=== PATIENT | female | born 1965 | race Caucasian/White ===

== ENCOUNTER 2019-05-26 12:04 | Observation (INO) | payer BC, MEDICARE ==
[2019-05-26] MEDS ORDERED: Fentanyl 100 MCG/2 ML VIAL ONE (12:17)
[2019-05-26] MEDS ORDERED: Potassium Chloride 20 MEQ TAB ONE (12:44)
[2019-05-26 12:53] LABS: PTT 27.5 SEC (22.9-36.1); Prothrombin Time 13.4 SEC (12.0-14.7)
[2019-05-26] MEDS ORDERED: Acetaminophen 325 MG TAB PO PRN (15:51)
[2019-05-26] MEDS ORDERED: Ondansetron PF 4 MG/2 ML Vial IVP PRN ×2 (15:51→16:03)
[2019-05-26] MEDS ORDERED: Morphine 4 MG/ML VIAL SLOW IVP PRN (15:51)
[2019-05-26] MEDS ORDERED: Ondansetron ODT 4 MG TAB SL PRN (15:51)
[2019-05-26] MEDS ORDERED: diphenhydrAMINE 50 MG/ML VIAL IVP SCH (16:03)
[2019-05-26] MEDS: NS 0.9% w/ 20 MEQ KCL 1,000 ML/1,000 ML BAG IV SCH (17:44)
--- NOTE | 2019-05-26 17:57 | HP ---
CHIEF COMPLAINT: Left index finger snakebite. HISTORY OF PRESENT ILLNESS: The patient is a 54-year-old female, who was bitten by a snake today this morning when she was trying to clean some brass, and she immediately went to the emergency room in [place], and she was treated with CroFab four vials and morphine and IV fluids, and she was transferred to the high level of care at [facility] in [place]. She is getting admitted for further observation. She did not have any other symptoms than just pain and swelling of the left hand. She did not have any nausea, vomiting, abdominal pain, or blood pressure problem. She did not have any paresthesias. No fever. No chills. PAST MEDICAL HISTORY: 1. Deisy-Danlos syndrome. 2. Thyroid goiter. 3. Adrenal fatigue syndrome. 4. Osteoarthritis. 5. Osteoporosis. 6. Some colon polyps with high-grade dysplasia and she is on the current surveillance. PAST SURGICAL HISTORY: 1. Cervical spine surgery x2. 2. Ulnar transposition surgery. 3. Right shoulder arthroplasty and replacement. 4. x2. 5. Tubal ligation. 6. Breast augmentation. 7. Abdominoplasty. SOCIAL HISTORY: She denies any alcohol, use of cigarette smoking, or illicit drug use. MEDICATIONS: Please refer to her medication list, but as far as I know, we do not have this list yet. ALLERGIES: NONE. REVIEW OF SYSTEMS: All systems were reviewed and they were negative except for mentioned in HPI. PHYSICAL EXAMINATION: VITAL SIGNS: Blood pressure is 130/86, pulse is 64, respiratory rate is 18, temperature is 97.7, O2 saturation is 99% on room air. HEENT: Her head is atraumatic and normocephalic. Eyes are PERRLA. Sclerae are nonicteric. Oral mucosa is moist. NECK: Supple. I do not feel any goiter. HEART: S1 and S2 normal. No S3. No S4. No any murmur. ABDOMEN: Soft, nontender, nondistended. Bowel sounds are present. No organomegaly. EXTREMITIES: Left hand up to the left elbow shows some swelling and tenderness to touch with mild erythema and there is an evidence of bite from the snake on the index finger. NEUROLOGICAL: She is alert and oriented x4. There are no any motor or sensory deficits present. Cranial nerves intact except for decreased sensation over the left hand and left forearm secondary to swelling. LABORATORY DATA: Sodium of 141, potassium 3.1, chloride 105, CO2 of 26, BUN 15, creatinine 0.94, glucose 120. The rest of chemistry is within normal limits. CPK is 104. Fibrinogen is 333. PT of 12.6 and INR of 0.9. CBC is normal. EKG is not done. IMPRESSION: Snakebite and assessed as moderate intensity into the left hand with a copperhead status post 4 ampoules of CroFab per antivenin treatment guidelines. This was done over 60 minutes in [place] today. The time of bite was 09:13 this morning to the left index finger. She received 1 L of IV fluids in [place]. We will give her additional 100 mL/hour of normal saline. We will continue p.r.n. opioids orally for the pain management and antiemetics p.r.n. as needed. We will do deep venous thrombosis prophylaxis with sequential compression devices, and we will review her home medications when the list is available. Job ID: [id number]
[2019-05-26 18:00] LABS: #Basophils 0.1 thou/uL (0.0-0.2); #Eosinphils 0.2 thou/uL (0.0-0.7); #Lymphocytes 2.2 thou/uL (1.20-3.40); #Monocytes 0.6 thou/uL (0.11-0.59); %Basophils 0.7 % (0.0-1.0); %Eosinophils 2.2 % (0.0-10.0); %Lymphocytes 24.2 % (21.0-51.0); %Monocytes 6.1 % (0.0-10.0); %Neutrophils 66.9 % (42.0-75.0); Hemoglobin 12.6 g/dL (12.0-16.0); Mean Corpuscular Hemoglobin 29.6 pg (27.0-31.0); Mean Corpuscular Volume 89.5 fL (78.0-98.0); Mean Platelet Volume 7.2 fL (7.4-10.4); Platelet Count 227 thou/uL (130-400); RBC Distribution Width 12.2 % (11.5-14.5); Red Blood Cell (RBC) Count 4.26 mill/uL (4.20-5.40)
[2019-05-26 18:06] LABS: Fibrinogen 282 mg/dL (253-463)
[2019-05-26 18:07] LABS: Prothrombin Time 13.5 SEC (12.0-14.7)
[2019-05-26 18:20] LABS: FSP-Qualitative ABNORMAL (Normal); FSP-Semiquantitative >=40 & <80 mcg/mL (Less than 5)
[2019-05-26 18:21] LABS: ALT (SGPT) 19 U/L (8-55); AST (SGOT) 20 U/L (5-34); Albumin 3.6 g/dL (3.5-5.0); Alkaline Phosphatase 80 U/L (40-150); Anion Gap 8 mmol/L (10-20); BUN (Urea Nitrogen) 11 mg/dL (9.8-20.1); Bilirubin, Total 0.9 mg/dL (0.2-1.2); CK (CPK) 75 U/L (29-168); Calc. Creatinine Clearance 66 mL/min (70-130); Calcium 8.4 mg/dL (7.8-10.44); Carbon Dioxide 29 mmol/L (22-29); Chloride 107 mmol/L (98-107); Estimated GFR-MDRD 74; Globulin 2.2 g/dL (2.4-3.5); Glucose 133 mg/dL (70-105); Potassium 3.8 mmol/L (3.5-5.1); Protein, Total 5.8 g/dL (6.0-8.3); Sodium 140 mmol/L (136-145)
[2019-05-26] MEDS: HYDROcodone/Acetaminophen 5/325 mg Tablet PO PRN (20:31)
[2019-05-27] MEDS: NS 0.9% w/ 20 MEQ KCL 1,000 ML/1,000 ML BAG IV SCH ×3 (03:34→15:27)
[2019-05-27] MEDS: Levothyroxine Sodium 75 MCG TAB PO SCH (06:22)
[2019-05-27] MEDS: HYDROcodone/Acetaminophen 5/325 mg Tablet PO PRN (06:22)
[2019-05-27 12:58] LABS: #Eosinphils 0.2 thou/uL (0.0-0.7); #Lymphocytes 1.9 thou/uL (1.20-3.40); #Monocytes 0.6 thou/uL (0.11-0.59); #Neutrophils 3.9 thou/uL (1.40-6.50); %Basophils 0.7 % (0.0-1.0); %Eosinophils 3.5 % (0.0-10.0); %Lymphocytes 28.3 % (21.0-51.0); %Monocytes 8.5 % (0.0-10.0); %Neutrophils 59.1 % (42.0-75.0); Hemoglobin 11.8 g/dL (12.0-16.0); Mean Corpuscular HGB CONC 32.9 g/dL (32.0-36.0); Mean Corpuscular Hemoglobin 29.5 pg (27.0-31.0); Mean Corpuscular Volume 89.5 fL (78.0-98.0); Mean Platelet Volume 7.2 fL (7.4-10.4); Platelet Count 200 thou/uL (130-400); RBC Distribution Width 12.2 % (11.5-14.5); Red Blood Cell (RBC) Count 3.99 mill/uL (4.20-5.40); White Blood Cell (WBC) Count 6.7 thou/uL (4.8-10.8)
[2019-05-27 13:23] LABS: ALT (SGPT) 15 U/L (8-55); AST (SGOT) 16 U/L (5-34); Albumin 3.1 g/dL (3.5-5.0); Alkaline Phosphatase 88 U/L (40-150); Anion Gap 6 mmol/L (10-20); BUN (Urea Nitrogen) 9 mg/dL (9.8-20.1); Bilirubin, Total 0.4 mg/dL (0.2-1.2); Calc. Creatinine Clearance 73 mL/min (70-130); Calcium 8.3 mg/dL (7.8-10.44); Carbon Dioxide 29 mmol/L (22-29); Chloride 109 mmol/L (98-107); Estimated GFR-MDRD 83; Globulin 1.9 g/dL (2.4-3.5); Glucose 151 mg/dL (70-105); Potassium 3.9 mmol/L (3.5-5.1); Sodium 140 mmol/L (136-145)
[2019-05-27] MEDS ORDERED: Sodium Chloride 0.9% 250 ML IV SCH (14:15)
[2019-05-27 15:06] VITALS: BMI 17.2
[2019-05-27] MEDS ORDERED: Acetaminophen 325 MG TAB PO PRN (16:32)
--- NOTE | 2019-05-27 18:02 | PRG ---
DATE OF SERVICE: 05/27/2019 SUBJECTIVE: The patient is seen and examined at the bedside. She is feeling somewhat better and her pain and swelling in the left arm is significantly improved. OBJECTIVE: VITAL SIGNS: Blood pressure is 115/60, pulse is 63, temperature is 98.0, respiratory rate is 18, and O2 saturation 97% on room air. HEENT: Head is atraumatic and normocephalic. Eyes are PERRLA. Sclerae are nonicteric. Oral mucosa is moist. NECK: Supple. LUNGS: Clear. HEART: S1 and S2 normal. No S3. No S4. ABDOMEN: Soft, nontender, and nondistended. EXTREMITIES: No clubbing or cyanosis. There is swelling and tenderness to palpation over her left hand, where she was bitten by the snake, but the swelling is improved and the tenderness is significantly improved too. NEUROLOGIC: She is alert and oriented x4. There is no any motor or sensory deficits. LABORATORY DATA: White count of 6.7, hemoglobin 11.8, hematocrit 35.7, and platelet count is 200,000. Sodium of 140, potassium 3.9, chloride 109, CO2 of 29, BUN 9, creatinine 0.73, and glucose 151. Liver function tests within normal limits. Followup lab work yesterday at 1800 hours showed no any worsening in her coagulation panels. EKG was done and it showed prolonged QT interval. She is in normal sinus rhythm on her electrocardiogram. IMPRESSION: Left hand copperhead snake bite status post 4 ampules of CroFab given yesterday. The patient improved significantly. She had some low blood pressure earlier today. She was given IV fluids and her blood pressure is back to normal. Her mental condition is good. Her potassium was replaced and today is 3.9. I recommended her to contact her primary care physician regarding prolonged QT. She said that she is going to contact her family sociologist for now. We are not going to continue her SSRI, which is most likely causing that. We will continue just Adderall, which is not associated with prolongation of QT interval. She should be able to go home tomorrow. Job ID: [id number]
[2019-05-28] MEDS: NS 0.9% w/ 20 MEQ KCL 1,000 ML/1,000 ML BAG IV SCH (03:00)
[2019-05-28] MEDS: Levothyroxine Sodium 75 MCG TAB PO SCH (05:36)
[2019-05-28] MEDS ORDERED: Furosemide 20 MG/2 ML VIAL SLOW IVP SCH (10:00)
[2019-05-28] MEDS ORDERED: Polyethylene Glycol 3350 17 GM Packet PO SCH (10:45)
[2019-05-28 12:21] VITALS: BP 114/68; TEMP 98.3
[2019-05-28] MEDS: ADDERALL 20 MG PO SCH ×2 (13:42→13:43)
--- NOTE | 2019-05-29 01:59 | DIS ---
DATE OF ADMISSION: 05/26/2019 DATE OF DISCHARGE: 05/28/2019 DIAGNOSES AT THE TIME OF DISCHARGE: 1. Poisonous snake bite. 2. Hypothyroidism. 3. Deisy Danlos syndrome. 4. Adrenal fatigue syndrome. 5. Osteoarthritis. 6. Osteoporosis. 7. History of colon polyps with high-grade dysplasia. HOSPITAL COURSE: The patient is a 54-year-old female, who was bitten by a copperhead snake. Apparently, she was trying to clean some brush and she was spitten in her left index finger. She immediately went to emergency room in [place], where she was treated with CroFab with four vials. Also, she was given fluids and morphine and was transferred for higher level of care to [facility] in [place]. At the time of emergency room visit, her blood pressure was 130/86, pulse was 64, respiratory rate was 18, temperature 97.7, O2 saturation was 99% on room air. Her left hand was swollen and very tender. She was treated with morphine and IV fluids, and got admitted to the hospital for observation. Her sodium was 141, potassium 3.1, so she was treated with potassium supplementation. Chloride was 105, CO2 of 26, BUN 15, creatinine 0.94, glucose 120, CPK was 104, fibrinogen 333, PT of 12.6, and INR of 0.9. CBC was normal. EKG showed prolonged QT interval. The patient was in sinus rhythm. She got admitted to the hospital. Her SSRI was stopped as possible cause of prolonged QT interval. She was continued on her thyroid supplementation and other medications. She was given IV fluids. There was no any complications after the admission. Her mental function was fine and we did not see any worsening of her clotting system based on our lab work. She is doing well. Her swelling is significantly down, almost completely gone. She is discharged home. Blood pressure is 114/68, pulse is 76, temperature is 98.3, respirations 18, O2 saturation is 98% on room air. She was seen and examined before she was discharged. She was discharged on regular diet. Activities as tolerated. Disposition home. She is going to contact her care tech regarding QT interval prolongation found on her electrocardiogram and use of SSRIs, which can cause that problem. Also, she will follow up with primary care physician in 1 week. She is planned to go to [place] for that, that is where she is from. TIME SPENT: Time spent on this discharge is less than 30 minutes. Job ID: [id number]
--- NOTE | 2019-05-30 12:31 | EKG ---
Test Reason : ER Blood Pressure : / mmHG Vent. Rate : 061 BPM Atrial Rate : 061 BPM P-R Int : 156 ms QRS Dur : 088 ms QT Int : 460 ms P-R-T Axes : 060 063 057 degrees QTc Int : 463 ms Normal sinus rhythm Prolonged QT Abnormal ECG Confirmed by VALERIE PALMER DO ([id number]), editorial manager EMILIANA DELATORRE ([id number] on 05/30/2019 12:31:03 PM Referred By: Confirmed By:AVLERIE PALMER DO
== END 2019-05-28 13:17 | disposition home or self-care (01) ==
LOC: ERS 12:04 → INTOOBSV 12:27 → ONC 12:27
PROVIDERS: ADMIT Internal Medicine; ATTEND Internal Medicine
DX: T63.061A Toxic effect of venom of other North and South American snake, accidental (unintentional), initial encounter (principal); M79.642 Pain in left hand; Q79.6 Ehlers-Danlos syndromes; M19.90 Unspecified osteoarthritis, unspecified site; M81.0 Age-related osteoporosis without current pathological fracture; E03.9 Hypothyroidism, unspecified; E27.8 Other specified disorders of adrenal gland; F32.9 Major depressive disorder, single episode, unspecified; F41.9 Anxiety disorder, unspecified; Z86.010 Personal history of colon polyps; Z79.899 Other long term (current) drug therapy
CPT/HCPCS: 36415; 80053; 83735; 85025; 85362; 85384; 85730; 93005; 96361; 96374; 96375; G0378; J2270; J3010; J3480